=== PATIENT | female | born 1975 | race Two or more races ===

== ENCOUNTER 2025-06-20 13:33 | Emergency (ER) | payer OTHER ==
[~2025-06-20] VITALS: Ht 167.6 cm; Wt 75.0 kg
[2025-06-20 14:51] LABS: Hematocrit 38.6 % (36.0-46.0); Hemoglobin 13.1 g/dL (12.2-16.2); Mean Corpuscular Hemoglobin 29.5 pg (28.0-32.0); Mean Corpuscular Volume 87.1 fL (80.0-100.0); Nucleated Red Blood Cells % 0.1 %
[2025-06-20 15:06] LABS: Alanine Aminotransferase 15 U/L (7-40); Albumin 4.6 g/dL (3.2-4.8); Alkaline Phosphatase 79 U/L (46-116); Anion Gap 9 (5-15); BUN/Creatinine Ratio 10.9 (10.0-20.0); Calcium 9.5 mg/dL (8.7-10.4); Carbon Dioxide 24 mmol/L (20-31); Glucose 90 mg/dL (74-106); Potassium 4.1 mmol/L (3.5-5.1); Sodium 141 mmol/L (136-145); Total Protein 7.1 g/dL (5.7-8.2)
[2025-06-20 15:25] LABS: Bilirubin, Total 0.2 mg/dL (0.2-1.0); Blood Urea Nitrogen 7 mg/dL (9-23); Chloride 108 mmol/L (98-107); Lipase 53 U/L (12-53)
[2025-06-20 16:06] LABS: Urine Protein, UAD Negative (Negative)
[2025-06-20] MEDS: MORPHINE SULFATE 4 MG/ML SYR/VIAL IM ONE (16:47)
[2025-06-20 17:09] VITALS: TEMP 98; O2SAT 95
--- NOTE | 2025-06-20 17:28 | ED.PDOC ---
GI ASSESSMENT HPI Comments This is a pleasant 50-year-old female that presents with a chief complaint of right upper quadrant pain radiating to the right upper back. She has been experiencing constant dull pain in the right upper quadrant that radiates to the right upper back which started suddenly yesterday. The pain becomes sharp with certain movements in his rated 9/10. There is no worsening pain after eating. She takes Tylenol for the pain with minimal imp rovement. She denies any urinary symptoms. Denies pelvic pain. Denies fevers chills nausea vomiting diarrhea. Denies tobacco alcohol or drugs Chief Complaint: Flank Pain Time Seen by MD: 13:47 Reviewed Notes: Nurses Notes, Medications, Allergies Allergies: Coded Allergies: Aripiprazole (Verified Allergy, Unknown, 06/20/25) Venlafaxine (Verified Allergy, Unknown, 06/20/25) Home Meds Active Scripts Methocarbamol (Methocarbamol) 500 Mg Tab, 500 MG PO Q8HP PRN for 10 Days, #30 TAB 0 Refills Prov:SEGUNMARJAN NP 06/20/25 Information Source: Patient Mode of Arrival: Ambulatory Past Medical History PAST MEDICAL HISTORY: Denies Surgical History: Denies all surgeries ORDER DESK CALLER History: No Pertinent ORDER DESK CALLER History Family History Family History: Reviewed,noncontributory to illness Social History Smoker: Non-Smoker Alcohol: Denies ETOH Use Drugs: Denies Drug Use All Other Systems: Reviewed and Negative (PER HPI) Physical Exam General Appearance: No Apparent Distress, Normal HEENT: Normal ENT Inspection, Pharynx Normal, TMs Normal Neck: Full Range of Motion, Non-Tender, Normal, Normal Inspection Respiratory: Chest Non-Tender, Lungs Clear, No Accessory Muscle Use, No Respiratory Distress, Normal Breath Sounds Cardiovascular: No Edema, No JVD, No Murmur, No Gallop, Regular Rate/Rhythm Breast Exam: Deferred Gastrointestinal: No Pulsatile Mass, Normal Bowel Sounds, RUQ (TTP), Soft, Tenderness Genitalia: Deferred Pelvic: Deferred Rectal: Deferred Extremities: No calf tenderness, Normal capillary refill, Normal inspection, Normal range of motion, Non-tender, No pedal edema Musculoskeletal : Apperance: Normal Neurologic: Alert, skull grinder II-XII nml as Tested, No Motor Deficits, Normal Affect, Normal Mood, No Sensory Deficits Cerebellar Function: Normal Reflexes: Normal Skin: Dry, Normal Color, Warm Lymphatic: No Adenopathy Was a procedure done? Was a procedure done?: No GI differential Dx Differential Diagnosis: Gastroenteritis, Kidney Stone, Other X-Ray, Labs, Meds, VS Vital Signs Date Time Temp Pulse Resp B/P (MAP) Pulse Ox O2 Delivery O2 Flow Rate FiO2 06/20/25 17:53 78 16 122/74 06/20/25 17:09 98.0 65 16 139/67 (91) 95 98.0 06/20/25 17:09 65 16 95 Room Air 06/20/25 16:47 65 16 139/67 06/20/25 15:15 98.0 66 16 137/89 (105) 98 98.0 06/20/25 13:41 97.3 73 16 131/86 99 97.3 Lab Test 06/20/25 14:30 06/20/25 14:20 Range/Units Urine Color Yellow Yellow Urine Clarity Turbid H Clear Urine pH 6.0 5.0-9.0 Urine Specific Arnold 1.022 1.001-1.035 Urine Protein Negative Negative Urine Ketones Negative Negative Urine Blood 2+ H Negative /uL Urine Nitrite Negative Negative Urine Bilirubin Negative Negative Urine Urobilinogen Normal Negative mg/dL Urine Leukocyte Esterase 2+ Negative /uL Urine Glucose Normal Normal mg/dL White Blood Count 8.4 4.4-10.8 10^3/uL Red Blood Count 4.43 4.0-5.20 10^6/uL Hemoglobin 13.1 12.2-16.2 g/dL Hematocrit 38.6 36.0-46.0 % Mean Corpuscular Volume 87.1 80.0-100.0 fL Mean Corpuscular Hemoglobin 29.5 28.0-32.0 pg Mean Corpuscular Hemoglobin Concent 33.9 32.0-36.0 g/dL Red Cell Distribution Width 13.7 11.8-14.3 % Platelet Count 439 140-450 10^3/uL Mean Platelet Volume 7.6 6.9-10.8 fL Neutrophils (%) (Auto) 47.6 37.0-80.0 % Lymphocytes (%) (Auto) 37.3 10.0-50.0 % Monocytes (%) (Auto) 7.1 0.0-12.0 % Eosinophils (%) (Auto) 6.6 0.0-7.0 % Basophils (%) (Auto) 1.4 0.0-2.0 % Neutrophils # (Auto) 4.0 1.6-8.6 10 ^3/uL Lymphocytes # (Auto) 3.1 0.4-5.4 10 ^3/uL Monocytes # (Auto) 0.6 0-1.3 10 ^3/uL Eosinophils # (Auto) 0.6 0-0.8 10 ^3/uL Basophils # (Auto) 0.1 0-0.2 10 ^3/uL Nucleated Red Blood Cells 0.1 % Sodium Level 141 136-145 mmol/L Potassium Level 4.1 3.5-5.1 mmol/L Chloride Level 108 H 98-107 mmol/L Carbon Dioxide Level 24 20-31 mmol/L Anion Gap 9 5-15 Blood Urea Nitrogen 7 L 9-23 mg/dL Creatinine 0.64 0.550-1.02 mg/dL Glomerular Filtration Rate Calc 109 >90 mL/min BUN/Creatinine Ratio 10.9 10.0-20.0 Serum Glucose 90 74-106 mg/dL Calcium Level 9.5 8.7-10.4 mg/dL Total Bilirubin 0.2 0.2-1.0 mg/dL Aspartate Amino Transferase (AST) 19 13-40 U/L Alanine Aminotransferase (ALT) 15 7-40 U/L Alkaline Phosphatase 79 46-116 U/L Total Protein 7.1 5.7-8.2 g/dL Albumin 4.6 3.2-4.8 g/dL Lipase 53 12-53 U/L X-Ray, Labs, Meds, VS Comment Pleasant 50-year-old female presents with a chief complaint of acute right upper quadrant abdominal pain. Constant dual pain with a sharp exacerbations upon movement. Obtain urine sample to evaluate for UTI. Lab work. Ultrasounds ordered. [place] for pain On reevaluation, patient had symptomatic improvement. Patient is stable for discharge at this time. External notes reviewed. Test results and diagnostic imaging interpreted. All diagnostic findings, discharge care, education and instructions provided Follow-up with PCP in 2 to 3 days Patient verbalized understanding and agreed to treatment plan Vital signs stable, afebrile, no acute distress noted Patient ambulatory with strong steady gait Advised to return precautions for any new or worsening symptoms, return to ER immediately for re-evaluation Patient is aware that the purpose of this visit was for an acute medical emergency requiring emergent stabilization. Chronic conditions, including malignancies have not been ruled out. Patient is instructed to follow up with PCP as directed and discharge instructions for continued care and workup. If unable to arrange follow-up, patient is to return to the emergency department for reassessment. Patient (parent or legal guardian if applicable) was given verbal and written discharge instructions and acknowledges understanding. Time of 1ST Reevaluation: 17:28 Reevaluation 1ST: Improved Patient Education/Counseling: Diagnosis, Treatment Family Education/Counseling: Diagnosis, Treatment SEPSIS Sepsis Screen Date sepsis recognized/suspect: Jun 20, 2025 Time Sepsis recognized/suspect: 1343 Recent Procedure: No On Antibiotic Therapy: No Respiratory Rate >20: No Heart Rate >90: No Temp<36 C (96.8 F) or >38.3 C: No SBP <90 or MAP <65 mmHG: No New Acute Mental Status Change: No Is the patient on CPAP, BIPAP,: No Physician Orders Abdomen Complete Sonogram (06/20/25 16:08) Vital Signs Date Time Temp Pulse Resp B/P (MAP) Pulse Ox O2 Delivery O2 Flow Rate FiO2 06/20/25 17:53 78 16 122/74 06/20/25 17:09 98.0 65 16 139/67 (91) 95 98.0 06/20/25 17:09 65 16 95 Room Air 06/20/25 16:47 65 16 139/67 06/20/25 15:15 98.0 66 16 137/89 (105) 98 98.0 06/20/25 13:41 97.3 73 16 131/86 99 97.3 Laboratory Tests Test 06/20/25 14:20 White Blood Count 8.4 10^3/uL (4.4-10.8) Departure 1 Departure Time of Disposition: 17:49 Impression: Primary Impression: Back pain Qualified Codes: M54.6 - Pain in thoracic spine Disposition: 01 HOME / SELF CARE / HOMELESS Condition: Stable e-Prescriptions Methocarbamol (Methocarbamol) 500 Mg Tab 500 MG PO Q8HP PRN for 10 Days, #30 TAB 0 Refills Prov: MARJAN CAST HEAVY DUTY CUSTODIAN 06/20/25 Discharged With: Relative Critical Care Note Critical Care Time?: No Stability Stability form required: No Heart Score Heart Score: Heart Score Response (Comments) Value History N/A 0 EKG N/A 0 Age N/A 0 Risk Factors N/A 0 Troponin N/A 0 Total 0 MARJAN CAST NP Jun 20, 2025 17:28
--- NOTE | 2025-06-20 17:38 | DVH ---
INDICATION: RUQ pain/FLANK PAIN TECHNIQUE: Multiple real-time sonographic images of the abdomen were obtained. COMPARISON: None FINDINGS: The liver is homogenous in echogenicity. The liver measures 14 cm. No intrahepatic biliary ductal dilatation is noted. The gallbladder wall measures 0.26 cm and is unremarkable. No gallstones or sludge is seen. The co mmon duct measures 0.33 cm and is unremarkable. No pericholecystic fluid is noted. Negative sonograp hic Valenzuela's sign The right kidney measures 9.1 cm. No hydronephrosis. The left kidney measures 9 cm. No hydronephros is. 1.8 cm anechoic lesion left kidney most likely cortical cysts The spleen measures 8.7 cm, within normal limits. The echogenicity is within normal limits. The pancreas is not well visualized due to obscuration from bowel gas. The visualized portions of the IVC and aorta are grossly unremarkable. IMPRESSION: 1. 1.8 cm anechoic lesion left kidney 2. Liver measures 14 cm and appears normal 3. Gallbladder is normal with no cholelithiasis or dilated duct. 4. Spleen measures 8.7 cm 5. Right kidney measures 9.1 cm. Left kidney measures 10.9 cm.
[2025-06-20] MEDS ORDERED: IBUP-1454 PO (17:49)
[2025-06-20 17:53] VITALS: BP 122/74; PULSE 78; RESP 16
[2025-06-20] MEDS ORDERED: METH-1181 PO (17:54)
== END 2025-06-20 17:59 | disposition home or self-care (01) ==
LOC: ER 13:33
DX: M54.6 Pain in thoracic spine (principal); R10.11 Right upper quadrant pain; Z79.899 Other long term (current) drug therapy; Z91.09 Other allergy status, other than to drugs and biological substances
CPT/HCPCS: 36415; 76700; 80053; 81003; 83690; 85025; 96372; 99285; J2270

== ENCOUNTER 2025-06-23 13:17 | Emergency (ER) | payer OTHER ==
[~2025-06-23] VITALS: Ht 167.6 cm; Wt 71.4 kg
[~2025-06-23 13:17] MED LIST: METH-1181 PO
[2025-06-23 13:18] VITALS: TEMP 97.3
[2025-06-23] MEDS: KETOROLAC TROMETH 60MG/2ML VIAL IM ONE (13:56)
--- NOTE | 2025-06-23 14:04 | ED.PDOC ---
Back pain HPI HPI Comments A 50-YEAR-OLD FEMALE WITH NO REPORTED PMHx PRESENTS WITH A CHIEF COMPLAINT OF RIGHT SIDED RIB PAIN THAT RADIATES TO THE BACK. PATIENT REPORTS HER RIB PAIN A /10 AT THIS TIME. PATIENT WAS SEEN SATURDAY FOR SAME CHIEF COMPLAINT AND STATES THAT THE PAIN HAS WORSENED. ALL VITAL SIGNS ARE STABLE AND WITHIN NORMAL LIMITS. DENIES ANY INJURIES OR TRAUMA. PATIENT MENTIONS THAT THE PAIN IS MADE WORSE WITH MOVEMENT AND RESTING DECREASES THE PAIN. PT DENIES FEVER, SOB, CHEST PAIN, NAUSEA, VOMITING, ABD PAIN AND OTHER COMPLAINTS. NO OTHER SYMPTOMS REPORTED AT [facility] TIME OF CARE. Chief Complaint: Rib Pain Time Seen by MD: 14:00 Reviewed Notes: Nurses Notes, Medications, Allergies Allergies: Coded Allergies: Aripiprazole (Verified Allergy, Unknown, 06/20/25) Venlafaxine (Verified Allergy, Unknown, 06/20/25) Home Meds Active Scripts Ibuprofen (Ibuprofen) 800 Mg Tab, 1 TAB PO TID, #30 TAB Prov:AMANUEL BACH 06/23/25 Methocarbamol (Methocarbamol) 500 Mg Tab, 500 MG PO Q8HP PRN for 10 Days, #30 TAB 0 Refills Prov:MARJAN CAST NP 06/20/25 Information Source: Patient Mode of Arrival: Ambulatory Timing: Days Duration: Since onset, Days Location of Back pain: (R) Thoracic Severity: Moderate, Other (RIGHT MIDDLE BACK PAIN ) Prehospital treatment: None Quality: Aching Onset: Bending, Lifing Circumstance: Other (DOING LAUNDARY ) History of: None Modifying Factors: Movement, Twisting, Breathing Associated signs and symptoms: None Past Medical History PAST MEDICAL HISTORY: Denies Surgical History: Denies all surgeries TRAVEL GUIDE History: No Pertinent TRAVEL GUIDE History Family History Family History: Reviewed,noncontributory to illness Social History Smoker: Non-Smoker Alcohol: Denies ETOH Use Drugs: Denies Drug Use Constitutional: denies: chills, diaphoresis, fatigue, fever, malaise, sweats, weakness, others EENTM: denies: blurred vision, double vision, ear bleeding, ear discharge, ear drainage, ear pain, ear ringing, eye pain, eye redness, hearing loss, mouth pain, mouth swelling, nasal discharge, nose bleeding, nose congestion, nose pain, photophobia, tearing, throat pain, throat swelling, voice changes, others Respiratory: denies: cough, hemoptysis, orthopnea, SOB at rest, shortness of breath, SOB with excertion, stridor, wheezing, others Cardiovascular: denies: chest pain, dizzy spells, diaphoresis, Dyspnea on exertion, edema, irregular heart beat, left arm pain, lightheadedness, palpitations, PND, syncope, others Gastrointestinal: denies: abdomen distended, abdominal pain, blood streaked bowels, constipated, diarrhea, dysphagia, difficulty swallowing, hematemesis, melena, nausea, poor appetite, poor fluid intake, rectal bleeding, rectal pain, vomiting, others Genitourinary: denies: abnormal vagina bleeding, burning, dyspareunia, dysuria, flank pain, frequency, hematuria, incontinence, pain, , vagina discharge, urgency, others Neurological: denies: dizziness, fainting, headache, left sided numbness, left sided weakness, numbness, paresthesia, pre-existing deficit, right sided numbness, right sided weakness, seizure, speech problems, tingling, tremors, weakness, others Musculoskeletal: reports: muscle pain; denies: back pain, gout, joint pain, joint swelling, muscle stiffness, neck pain, others Integumetry: denies: bruises, change in color, change in hair/nails, dryness, laceration, lesions, lumps, rash, wounds, others Allergic/Immunocompromised: denies: Difficulty Healing, Frequent Infections, Hives, Itching, others Hematologic/Lymphatic: denies: anemia, blood clots, easy bleeding, easy bruising, swollen glands, others Endocrine: denies: excessive hunger, excessive sweating, excessive thirst, excessive urination, flushing, intolerance to cold, intolerance to heat, unexplained weight gain, unexplained weight loss, others Psychiatric: denies: anxiety, bipolar disorder, depression, hopeless, panic disorder, schizophrenia, sleepless, suicidal, others All Other Systems: Reviewed and Negative Physical Exam General Appearance: No Apparent Distress, Normal HEENT: Normal ENT Inspection, PERRL/EOMI, Pharynx Normal, TMs Normal Neck: Full Range of Motion, Non-Tender, Normal, Normal Inspection Respiratory: Chest Non-Tender, Lungs Clear, No Accessory Muscle Use, No Respiratory Distress, Normal Breath Sounds Cardiovascular: No Edema, No JVD, No Murmur, No Gallop, Normal Peripheral Pulses, Regular Rate/Rhythm Breast Exam: Deferred Gastrointestinal: No Organomegaly, Non Tender, No Pulsatile Mass, Normal Bowel Sounds, Soft Genitalia: Deferred Pelvic: Deferred Rectal: Deferred Extremities: No calf tenderness, Normal capillary refill, Normal inspection, Normal range of motion, Non-tender, No pedal edema Musculoskeletal : Location: Right Extremity Location: Back Apperance: Normal, Tenderness (AND MUSCLE SPASM ON RIGHT MIDDLE BACK AND POSTERIOR MIDDLE RIBS, NO BONY TENDERNESS, SWELLING AND DEFORMITY. ) Neurologic: Alert, electrician telephone II-XII nml as Tested, No Motor Deficits, Normal Affect, Normal Mood, No Sensory Deficits Cerebellar Function: Normal Reflexes: Normal Skin: Dry, Normal Color, Warm Peripheral Pulses: 2+ carotid (R), 2+ carotid (L) Lymphatic: No Adenopathy Was a procedure done? Was a procedure done?: No Back Pain Differential Dx Differential Diagnosis: Fracture, Musculoskeletal Pain, Strain X-Ray, Labs, Meds, VS Vital Signs Date Time Temp Pulse Resp B/P (MAP) Pulse Ox O2 Delivery O2 Flow Rate FiO2 06/23/25 13:18 97.3 63 13 152/72 100 97.3 Current Medications Medications (Trade) Dose Ordered Sig/Kateryna Route Start Time Stop Time Status Last Admin Ketorolac Tromethamine (Toradol Injection) 60 mg ONCE ONCE IM 06/23/25 13:45 06/23/25 13:46 DC 06/23/25 13:56 X-Ray, Labs, Meds, VS Comment EXTERNAL MEDICAL RECORDS REVIEWED: [NONE] INDEPENDENT HISTORIANS: [NONE] SOCIAL DETERMINANTS OF HEALTH: [NONE] LABS ORDERED: NONE REVIEWED AND INTERPRETED RESULTS: NONE IMAGING ORDERED: RIBCAGE X-RAY - NO FRACTURE OR DISLOCATION, READ BY ME, PENDING FINAL RADIOLOGIST REPORT TREATMENTS ORDERED: TORADOL 60MG IM PROCEDURES PERFORMED: NONE CRITICAL CARE TIME: NONE I HAVE DISCUSSED THE PATIENT WITH THE ATTENDING PHYSICIAN DR. POE AND HE AGREES WITH THE PATIENT'S PLAN OF CARE AND DISPOSITION. BASED ON HISTORY OF PRESENT ILLNESS, AND PHYSICAL EXAM, PATIENT WILL BE DISCHARGED HOME. DISCUSSED PLAN FOR DISCHARGE HOME WITH RX [MOTRIN 80-0MG]. MEDICATION WARNINGS GIVEN. SHARED DECISION MAKING: DISCUSSED WITH PATIENT THAT THEIR WORKUP WAS NORMAL. PATIENT INSTRUCTED TO FOLLOW UP WITH PRIMARY CARE PROVIDER IN 1-2 DAYS FOR RE- EVALUATION OF SYMPTOMS. PATIENT VERBALIZES UNDERSTANDING TO RETURN TO ED FOR NEW OR WORSENING SYMPTOMS OR IF FOLLOW UP WITH PCP CANNOT BE OBTAINED. PATIENT FEELS COMFORTABLE GOING HOME AT THIS TIME. ALL QUESTIONS ADDRESSED AT TIME OF DISCHARGE. Time of 1ST Reevaluation: 14:22 Reevaluation 1ST: Improved Patient Education/Counseling: Diagnosis, Treatment, Need For Follow Up Family Education/Counseling: Diagnosis, Treatment, Need For Follow Up Medical Screening: No EMC Exist At This Time SEPSIS Sepsis Screen Date sepsis recognized/suspect: Jun 23, 2025 Time Sepsis recognized/suspect: 1317 Recent Procedure: No On Antibiotic Therapy: No Respiratory Rate >20: No Heart Rate >90: No Temp<36 C (96.8 F) or >38.3 C: No SBP <90 or MAP <65 mmHG: No New Acute Mental Status Change: No Is the patient on CPAP, BIPAP,: No Physician Orders Chest Two Views Routine (06/23/25 13:42) Vital Signs Date Time Temp Pulse Resp B/P (MAP) Pulse Ox O2 Delivery O2 Flow Rate FiO2 06/23/25 13:18 97.3 63 13 152/72 100 97.3 Medications Medications Dose Ordered Sig/Kateryna Route Start Time Stop Time Status Last Admin Dose Admin Ketorolac Tromethamine 60 mg ONCE ONCE IM 06/23/25 13:45 06/23/25 13:46 DC 06/23/25 13:56 Departure 1 Departure Time of Disposition: 14:23 Impression: Primary Impression: Intercostal muscle strain Qualified Codes: S29.011A - Strain of muscle and tendon of front wall of thorax, initial encounter Disposition: HOME / SELF CARE / HOMELESS Condition: Stable Additional Instructions: FOLLOW-UP WITH PCP IN 1 TO 2 DAYS. TAKE MEDICATIONS PRESCRIBED. RETURN TO ED FOR ANY NEW OR WORSENING SYMPTOMS. e-Prescriptions Ibuprofen (Ibuprofen) 800 Mg Tab 1 TAB PO TID, #30 TAB Prov: AMANUEL BACH 06/23/25 Discharged With: Self Critical Care Note Critical Care Time?: No Stability Stability form required: No Heart Score Heart Score: Heart Score Response (Comments) Value History N/A 0 EKG N/A 0 Age N/A 0 Risk Factors N/A 0 Troponin N/A 0 Total 0 I personally scribed for AMANUEL BACH ([email or web address]) on 06/23/25 at 14:04. Electronically submitted by Murray Mendoza ([email or web address]). I personally scribed for AMANUEL BACH ([email or web address]) on 06/23/25 at 14:15. Electronically submitted by Murray Mendoza ([email or web address]). I personally scribed for AMANUEL BACH ([email or web address]) on 06/23/25 at 14:16. Electronically submitted by Murray Mendoza ([email or web address]). AMANUEL BACH Jun 23, 2025 14:04
[2025-06-23] MEDS ORDERED: IBUP-1456 PO (14:18)
--- NOTE | 2025-06-23 14:19 | DVH ---
XY CHEST TWO VIEWS ROUTINE CLINICAL HISTORY: RIGHT MIDDLE RIBS PAIN, NO INJURY COMPARISON: None TECHNIQUE: Frontal and lateral view of the chest was obtained FINDINGS: Lines and Tubes: None Lungs: No focal consolidation. Pleura: No effusion. No pneumothorax. Cardiomediastinal contours: Unremarkable Bones: No acute osseous abnormality. IMPRESSION: No acute cardiopulmonary disease.
[2025-06-23 14:25] VITALS: BP 128/77; PULSE 97; RESP 18; O2SAT 97
== END 2025-06-23 14:27 | disposition home or self-care (01) ==
LOC: ER 13:17
DX: S29.011A Strain of muscle and tendon of front wall of thorax, initial encounter (principal); Z79.1 Long term (current) use of non-steroidal anti-inflammatories (NSAID); Z79.899 Other long term (current) drug therapy; X58.XXXA Exposure to other specified factors, initial encounter; Y93.89 Activity, other specified; Y92.89 Other specified places as the place of occurrence of the external cause; Y99.8 Other external cause status
CPT/HCPCS: 71046; 96372; 99283; J1885